=== PATIENT | male | born 1965 | race Caucasian/White ===

== ENCOUNTER 2018-06-04 01:40 | Emergency (ER) | payer MEDICAID, OTHER ==
[~2018-06-04] VITALS: Ht 185.4 cm; Wt 79.4 kg
[2018-06-04 01:44] VITALS: BP 136/70
[2018-06-04] MEDS: CLINDAMYCIN 150 MG CAP PO ONE (02:09)
[2018-06-04 02:35] VITALS: BP 130/70
== END 2018-06-04 02:38 | disposition home or self-care (01) ==
LOC: MED 01:40
DX: L03.114 Cellulitis of left upper limb (principal); R03.0 Elevated blood-pressure reading, without diagnosis of hypertension; Z88.0 Allergy status to penicillin
CPT/HCPCS: 99283

== ENCOUNTER 2018-08-10 01:29 | Emergency (ER) | payer OTHER ==
[~2018-08-10] VITALS: Ht 185.4 cm; Wt 79.4 kg
[2018-08-10 01:52] VITALS: BP 136/75
[2018-08-10] MEDS ORDERED: LIDOCAINE 1% 500 MG/50 ML VIAL INJ SCH (02:10)
[2018-08-10] MEDS ORDERED: IBUPROFEN 800 MG TAB PO ONE (02:55)
[2018-08-10 03:13] VITALS: BP 135/82
== END 2018-08-10 03:10 | disposition home or self-care (01) ==
LOC: MED 01:29
DX: I88.9 Nonspecific lymphadenitis, unspecified (principal); R03.0 Elevated blood-pressure reading, without diagnosis of hypertension; Z88.0 Allergy status to penicillin
CPT/HCPCS: 10061; 99284; J2001

== ENCOUNTER 2018-08-26 05:10 | Emergency (ER) | payer OTHER ==
[~2018-08-26] VITALS: Ht 185.4 cm; Wt 79.4 kg
[2018-08-26 05:17] VITALS: BP 133/75
[2018-08-26] MEDS ORDERED: KETOROLAC 60 MG/2 ML VIAL IM ONE (05:30)
[2018-08-26 05:50] VITALS: BP 123/66
== END 2018-08-26 05:45 | disposition home or self-care (01) ==
LOC: MED 05:10
DX: L02.412 Cutaneous abscess of left axilla (principal); L03.112 Cellulitis of left axilla; F17.200 Nicotine dependence, unspecified, uncomplicated
CPT/HCPCS: 96372; 99283; J1885